=== PATIENT | male | born 2000 | race Caucasian/White ===

== ENCOUNTER 2025-01-17 13:30 | Emergency (ER) | payer SELFPAY ==
[~2025-01-17] VITALS: Ht 165.1 cm; Wt 73.0 kg
[2025-01-17 13:46] VITALS: O2SAT 97
[2025-01-17] MEDS ORDERED: POLY17PO3 MT (15:29)
[2025-01-17] MEDS ORDERED: PSYL575P22 MT (15:29)
[2025-01-17] MEDS ORDERED: SENN-139 PO (15:29)
[2025-01-17 15:46] VITALS: BP 111/67; PULSE 67; RESP 16; TEMP 36.8; O2SAT 97
== END 2025-01-17 15:46 | disposition home or self-care (01) ==
LOC: ER 13:30
DX: K59.00 Constipation, unspecified (principal); R53.83 Other fatigue
CPT/HCPCS: 99282